=== PATIENT | female | born 1975 | race Caucasian/White ===

== ENCOUNTER 2018-03-12 11:51 | Day surgery (SDC) | payer OTHER ==
[~2018-03-12] VITALS: Ht 170.2 cm; Wt 58.7 kg
[~2018-03-12 11:51] MED LIST: Advil200 M1 PO; EXTRA STRENGTH500 MG PO; SUPER B-COMPL400 MCG PO; TURMERIC500 M2 PO; VITAMIN D31000 UNIT PO
[2018-03-12] MEDS ORDERED: TURMERIC1 GM (12:34)
--- NOTE | 2018-03-12 14:30 | NUR ---
03/12/18 1430 Elba Colon [id number] NACL FLUID DEFICIT FROM HYSTEROSCOPY.
--- NOTE | 2018-03-13 09:01 | NUR ---
03/13/18 0901 Ronnie Ren LATE ENTRY NARRATIVE DUE TO MEDITECH LOCK OUT, TICKET# [id number] RECEIVED REPORT FROM [facility].KT AT 1515 AND TOOK OVER PATIENT CARE. PATIENT IS RESTING IN SDU RECLINER, REPORTS 5/10 PAIN, PER MD ORDERS GAVE IV PAIN MEDICATION, WILL CONTINUE TO MONITOR. PATIENT VSS, TOELRATING PO FLUIDS AND CRACKERS WELL. PAIN REASSESSED PATIENT REPORTS 1/10 PAIN AND IS TOLERABLE DISCHARGE INSTRUCTIONS REVIEWED WITH PATIENT AND SPOUSE, BOTH DENY HAVING ANY QUESTIONS AT THIS TIME. NURSE ASSISTED PATIENT TO HER RIDE HOME
== END 2018-03-12 16:15 | disposition home or self-care (01) ==
LOC: ORSCSDS 11:51
PROVIDERS: Obstetrics & Gynecology Gynecology
PROC: 0UB98ZX Excision of Uterus, Via Natural or Artificial Opening Endoscopic, Diagnostic (ICD-10-PCS; principal; 2018-03-12 13:00)
PROC: 0UDB7ZX Extraction of Endometrium, Via Natural or Artificial Opening, Diagnostic (ICD-10-PCS; principal; 2018-03-12 13:00)
PROC: 0UB04ZZ Excision of Right Ovary, Percutaneous Endoscopic Approach (ICD-10-PCS; 2018-03-12 13:00)
DX: N83.291 Other ovarian cyst, right side (principal); N84.0 Polyp of corpus uteri; N92.0 Excessive and frequent menstruation with regular cycle; D50.0 Iron deficiency anemia secondary to blood loss (chronic)
CPT/HCPCS: 88305; J0690; J1100; J1885; J2250; J2370; J2405; J2710; J3010; J7120

== ENCOUNTER 2018-07-19 09:55 | Day surgery (SDC) | payer OTHER ==
[~2018-07-19 09:55] MED LIST changes: +TURMERIC1 GM
--- NOTE | 2018-07-19 11:25 | NUR ---
[id number] ARRIVED TO UNIT VIA WHEELCHAIR ACCOMPANIED BY . PATIENT ORIENTED TO ROOM AND CALL SYSTEM
--- NOTE | 2018-07-19 18:18 | NUR ---
SECOND UNIT OF RBCS COMPLETED. IV DC'D. PATIENT AWAITING POST TRANSCUSION CBC
[2018-07-19 19:05] LABS: Hematocrit 32.9 % (33.0-51.0); Hemoglobin 9.5 g/dL (11.5-16.0)
--- NOTE | 2018-07-19 19:11 | NUR ---
184 DISCHARGED TO HOME. PATIENT INSTRUCTED TO GO TO ER IF VAGINAL BLEEDING, DIZZINESS, LIGHTHEADEDNESS OR FEELING UNWELL. PATIENT HAS FOLLOW UP APPT SCHEDULED FOR NEXT WEEK
== END 2018-07-19 19:30 | disposition home or self-care (01) ==
LOC: TRN 09:55 → SURS 19:30 → EDSTATUS 07-24 07:53
PROVIDERS: Physician Assistant Medical
DX: D64.9 Anemia, unspecified (principal); G43.909 Migraine, unspecified, not intractable, without status migrainosus; Z79.899 Other long term (current) drug therapy; R79.9 Abnormal finding of blood chemistry, unspecified
CPT/HCPCS: 36415; 36430; 85014; 85018; 86850; 86900; 86901; 86923; P9016

== ENCOUNTER 2018-08-19 00:11 | Day surgery (SDC) | payer OTHER ==
[2018-08-19] MEDS ORDERED: SUPER B-COMPL400 MCG PO (14:49)
[2018-08-19] MEDS ORDERED: Calcium Magnes1 EAC1 PO (14:55)
== END 2018-08-19 17:50 | disposition home or self-care (01) ==
LOC: ATC 00:11
DX: D50.0 Iron deficiency anemia secondary to blood loss (chronic) (principal); Z79.899 Other long term (current) drug therapy
CPT/HCPCS: 36415; 36430; 86850; 86900; 86901; 86923; J7050; P9016

== ENCOUNTER 2018-08-22 08:44 | Inpatient (IN) | payer OTHER ==
[~2018-08-22] VITALS: Ht 170.2 cm; Wt 55.4 kg
[~2018-08-22 08:44] MED LIST changes: +Calcium Magnes1 EAC1 PO
--- NOTE | 2018-08-22 09:18 | NUR ---
History, Chart, Medications and Allergies reviewed before start of procedure. Lungs clear T/O to Auscultation. Patient confirms NPO status and agrees with scheduled surgery. Patient reports completing Chlorhexadine shower X2 prior to admission to hospital. Pre-Op teaching done. Pt verbalizes understanding.
--- NOTE | 2018-08-22 09:33 | NUR ---
UNABLE TO DRAW BLOOD WITH IV INSERTION. BLOOD DRAWN FROM RAC. PT TOLERATED WELL.
[2018-08-22 09:48] LABS: Hematocrit 37.2 % (33.0-51.0); Hemoglobin 10.7 g/dL (11.5-16.0)
[2018-08-22 15:14] LABS: BASOPHILS ABSOLUTE AUTO 0.01 K/mm3 (0.00-0.23); BASOPHILS PERCENT AUTO 0 % (0-2); EOSINOPHILS PERCENT AUTO 0 % (0-6); Hematocrit 35.2 % (33.0-51.0); Hemoglobin 10.3 g/dL (11.5-16.0); IMMATURE GRAN ABSOLUTE AUTO 0.04 K/mm3 (0.00-0.10); IMMATURE GRAN PERCENT AUTO 0 % (0-1); LYMPHOCYTES ABSOLUTE AUTO 0.54 K/mm3 (0.84-5.20); LYMPHOCYTES PERCENT AUTO 4 % (21-46); MONOCYTES ABSOLUTE AUTO 0.16 K/mm3 (0.16-1.47); MONOCYTES PERCENT AUTO 1 % (4-13); Mean Corpuscular HGB 25.9 pg (26.0-34.0); Mean Corpuscular HGB Conc 29.3 g/dL (31.5-36.5); Mean Platelet Volume 9.1 fL (9.1-12.4); NEUTROPHILS ABSOLUTE AUTO 11.77 K/mm3 (1.96-9.15); NEUTROPHILS PERCENT AUTO 94 % (41-73); Platelet Count 364 K/mm3 (150-400); RDW Coefficient Variation 16.2 % (11.7-14.2); RDW Standard Deviation 53.1 fL (35.1-46.3); Red Blood Cell Count 3.98 M/mm3 (3.80-5.20); White Blood Cell Count 12.52 K/mm3 (4.00-11.30)
[2018-08-22 15:30] LABS: Mean Corpuscular Volume 88 fL (80-100)
--- NOTE | 2018-08-22 17:05 | NUR ---
SHIFT SUMMARY S/P ROLA. POST OP VSS. PT USING MORPHINE BIAS BINDING FOLDER FOR PAIN MANAGEMENT AND KPAD TO ABD FOR COMFORT. ROCÍO CLEAR LIG DIET. IVF INFUSING PER ORDERS. WAY WITH CLEAR YELLOW URINE. TRANSVERSE ABD DRESSING IS CDI. SCANT VAGINAL BLEEDING. PLANNING TO GET OOB AND AMBULATE AFTER DINNER. AT SIDE FOR SUPPORT. CALL LIGHT WITHIN REACH. WILL CONT TO MONITOR.
[2018-08-23 04:28] LABS: BASOPHILS ABSOLUTE AUTO 0.02 K/mm3 (0.00-0.23); BASOPHILS PERCENT AUTO 0 % (0-2); EOSINOPHILS PERCENT AUTO 0 % (0-6); Hematocrit 33.4 % (33.0-51.0); Hemoglobin 9.7 g/dL (11.5-16.0); IMMATURE GRAN ABSOLUTE AUTO 0.02 K/mm3 (0.00-0.10); IMMATURE GRAN PERCENT AUTO 0 % (0-1); LYMPHOCYTES ABSOLUTE AUTO 1.55 K/mm3 (0.84-5.20); LYMPHOCYTES PERCENT AUTO 14 % (21-46); MONOCYTES ABSOLUTE AUTO 1.11 K/mm3 (0.16-1.47); MONOCYTES PERCENT AUTO 10 % (4-13); Mean Corpuscular HGB 25.7 pg (26.0-34.0); Mean Corpuscular Volume 89 fL (80-100); Mean Platelet Volume 9.5 fL (9.1-12.4); NEUTROPHILS ABSOLUTE AUTO 8.14 K/mm3 (1.96-9.15); NEUTROPHILS PERCENT AUTO 75 % (41-73); Platelet Count 355 K/mm3 (150-400); RDW Coefficient Variation 16.2 % (11.7-14.2); RDW Standard Deviation 52.7 fL (35.1-46.3); Red Blood Cell Count 3.77 M/mm3 (3.80-5.20); White Blood Cell Count 10.84 K/mm3 (4.00-11.30)
--- NOTE | 2018-08-23 06:21 | NUR ---
SHIFT SUMMARY: PT POD #1 FOR TOTAL ABD HYSTERECTOMY. TRANSVERSE DRESSING TO ABD CDI. ROCÍO CLR LIQ DIET. DENIES N/V. PAIN MANAGED WITH MORPHINE ANALYSIS MANAGER. FLUIDS INFUSING. WAY D/C THIS MORNING AT APPROX 0615. PT AMBULATING WITH MINIMAL ASSIST TO BATHROOM.
[2018-08-23] MEDS ORDERED: Norco 5-325 Ta1 EACH PO (12:09)
--- NOTE | 2018-08-23 16:13 | NUR ---
DISCHARGE PT DISCHARGED HOME AT THIS TIME. PT EDUCATED ON AND RECEIVED PRINTED DC INSTRUCTIONS. PT VERBALIZED AN UNDERSTANDING. HARD RX FOR NORCO GIVEN TO PT. IV DC'D. PT LEFT WITH ALL PERSONAL BELONGINGS.
== END 2018-08-23 16:14 | disposition home or self-care (01) | DRG 743 ==
LOC: SURS 08:44 → PRE IP 10:15 → SURS 13:37
PROVIDERS: ADMIT Obstetrics & Gynecology Gynecology
PROC: 0UT90ZZ Resection of Uterus, Open Approach (ICD-10-PCS; principal; 2018-08-22 10:15)
PROC: 0UB60ZZ Excision of Left Fallopian Tube, Open Approach (ICD-10-PCS; 2018-08-22 10:15)
DX: N92.0 Excessive and frequent menstruation with regular cycle (principal); D50.0 Iron deficiency anemia secondary to blood loss (chronic)
CPT/HCPCS: 36415; 85014; 85018; 85025; 86850; 86900; 86901; 88307; A9270-GY; J0690; J1100; J1170; J1885; J2250; J2270; J2310; J2370; J2405; J2704; J2710; J3010; J7120